=== PATIENT | male | born 1960 | race Caucasian/White ===

== ENCOUNTER 2019-06-07 15:15 | Emergency (ER) | payer MEDICAID ==
[~2019-06-07] VITALS: Ht 177.8 cm; Wt 45.0 kg
[~2019-06-07 15:15] MED LIST: BISA10SU11 RC; DOCU-28 PO; ENOX40SY7 SUBCUT; FOLI1TAB16 PO; KETO15CR2 TOP; LEVE500T PO; MAG355OR18 PO; MAGN400O6 PO; NA P133E RC; NICO-687 TOP; POLY17PO10 PO; THI100T PO; TRAM50TA2 PO
[2019-06-07] MEDS ORDERED: levetiracetam inj 1,000 MG in normal saline 100ml IV soln 90 ML IV STA (16:03)
[2019-06-07] MEDS ORDERED: normal saline 1000ML IV soln IVB ONE (16:05)
[2019-06-07 16:30] LABS: BASOPHILS # (AUTO) 0.1 X10'3 (0-0.2); BASOPHILS % (AUTO) 0.7 % (0-1); EOSINOPHILS % (AUTO) 0.1 % (0-6); HEMATOCRIT 42.2 % (42.0-52.0); HEMOGLOBIN 14.1 g/dl (14.0-17.9); LYMPHOCYTES # (AUTO) 0.7 X10'3 (1.1-4.8); LYMPHOCYTES % (AUTO) 8.3 % (21-51); MEAN CORPUSCULAR HEMOGLOBIN 31.1 PG (27.0-31.0); MEAN CORPUSCULAR HGB CONC 33.5 g/dL (33.0-36.5); MEAN CORPUSCULAR VOLUME 92.8 FL (78-98); MEAN PLATELET VOLUME 8.8 FL (7.4-10.4); MONOCYTES # (AUTO) 0.4 X10'3 (0-0.9); MONOCYTES % (AUTO) 4.8 % (2-12); NEUTROPHILS # (AUTO) 7.1 X10'3 (1.8-7.7); NEUTROPHILS % (AUTO) 86.1 % (42-75); PLATELET COUNT 239 X10'3 (140-440); RED BLOOD COUNT 4.54 X10'6 (4.70-6.10); RED CELL DISTRIBUTION WIDTH 13.5 % (11.5-14.5); WHITE BLOOD COUNT 8.2 X10'3 (4.5-11.0)
[2019-06-07 16:51] LABS: ALANINE AMINOTRANSFERASE 20 U/L (12-78); ALBUMIN 3.5 G/DL (3.4-5.0); ALBUMIN/GLOBULIN RATIO 0.8 (1.1-1.5); ALKALINE PHOSPHATASE 102 IU/L (46-116); ANION GAP 6 (8-16); ASPARTATE AMINO TRANSFERASE 20 U/L (10-37); BILIRUBIN,TOTAL 0.4 MG/DL (0.1-1.0); BLOOD UREA NITROGEN 9 MG/DL (7-18); BUN/CREATININE RATIO 12.5 (5.4-32.0); CALCIUM 9.2 MG/DL (8.5-10.1); CHLORIDE 105 MMOL/L (99-107); CREATININE 0.72 MG/DL (0.60-1.10); GLUCOSE 112 MG/DL (70-104); POTASSIUM 4.8 MMOL/L (3.5-5.1); SODIUM 136 MMOL/L (135-145); TOTAL CARBON DIOXIDE 24.9 MMOL/L (24-32); TOTAL PROTEIN 7.8 G/DL (6.4-8.2); eGFR > 90 ML/MIN
[2019-06-07] MEDS ORDERED: LORazepam 2 mg/ml vial IV ONE ×2 (17:30→18:00)
[2019-06-07] MEDS ORDERED: LORazepam 2 mg/ml vial ONE (17:58)
[2019-06-07] MEDS ORDERED: haloperidol lactate 5mg/ml inj ONE (18:04)
[2019-06-07] MEDS ORDERED: haloperidol lactate 5mg/ml inj IM ONE ×2 (18:05→18:40)
--- NOTE | 2019-06-07 18:08 | NUR ---
Leif HULL when walking by patients room and noticed that patient had bloody sputum on his grown and on his face. Leif HULL spoke with Dr. Sweeney regarding possible seizure unwitness. Dr. Sweeney orders patient 0.5 mg IV ativan once now, medication was given to patient at 1751. Patient began to become combative trying to get out of bed and pulling at lines. Security available Addendum: 06/07/19 at 1815 by HKISER continued note Security available and able to help get back to lay back on bed. Dr. Sweeney attempted to calm patient as well as nursing staff. Patient was continuing to pull at times and 1 mg IV ativan once now administered by Dr. Sweeney. Patient continued to pull at gown and IV at which security assisted with physically restraining him due to aggression. Dr. Sweeney gave me a verbal order to adminster 5 mg IM halodol one now for aggitation. Patient began to relax his body and was no longer fighting with staff. Patient is resting currently.
[2019-06-07] MEDS ORDERED: diphenhydrAMINE 50 mg/ml inj IV ONE (18:40)
[2019-06-07 20:24] VITALS: BP 168/95
== END 2019-06-07 21:31 | disposition home or self-care (01) ==
LOC: ER 15:16
DX: G40.909 Epilepsy, unspecified, not intractable, without status epilepticus (principal); F12.90 Cannabis use, unspecified, uncomplicated; Z98.890 Other specified postprocedural states; Z88.6 Allergy status to analgesic agent; Z88.5 Allergy status to narcotic agent; Z79.899 Other long term (current) drug therapy
CPT/HCPCS: 36415; 70450; 71045; 80053; 85025; 96365; 96372; 96375; 99285; J1630; J1953; J2060; J7030